=== PATIENT | female | born 1955 | race Caucasian/White ===

== ENCOUNTER → 2016-09-30 | Outpatient (CLI) | payer BC | LOC: BRMIMAGING 07:43 | PROVIDERS: ATTEND Obstetrics & Gynecology Gynecology | DX: Z12.31 Encounter for screening mammogram for malignant neoplasm of breast (principal); R92.8 Other abnormal and inconclusive findings on diagnostic imaging of breast | CPT/HCPCS: G0202 ==

== ENCOUNTER → 2016-10-13 | Outpatient (CLI) | payer BC | LOC: BRMIMAGING 09:48 | PROVIDERS: ATTEND Obstetrics & Gynecology Gynecology | DX: R92.8 Other abnormal and inconclusive findings on diagnostic imaging of breast (principal) | CPT/HCPCS: G0206 ==

== ENCOUNTER → 2016-12-10 | Outpatient (CLI) | payer OTHER, BC | LOC: BMCIMAGING 14:01 | PROVIDERS: ATTEND Family Medicine | DX: S92.352A Displaced fracture of fifth metatarsal bone, left foot, initial encounter for closed fracture (principal) ==

== ENCOUNTER → 2016-12-25 | Outpatient (CLI) | payer OTHER, BC | LOC: BMCIMAGING 10:33 | PROVIDERS: ATTEND Podiatrist Foot & Ankle Surgery | DX: S92.352D Displaced fracture of fifth metatarsal bone, left foot, subsequent encounter for fracture with routine healing (principal) ==

== ENCOUNTER → 2017-01-18 | Outpatient (CLI) | payer OTHER, BC | LOC: BMCIMAGING 14:34 | PROVIDERS: ATTEND Podiatrist Foot & Ankle Surgery | DX: S92.352D Displaced fracture of fifth metatarsal bone, left foot, subsequent encounter for fracture with routine healing (principal) ==

== ENCOUNTER → 2017-02-15 | Outpatient (CLI) | payer OTHER, BC | LOC: BMCIMAGING 15:08 | PROVIDERS: ATTEND Podiatrist Foot & Ankle Surgery | DX: S92.352D Displaced fracture of fifth metatarsal bone, left foot, subsequent encounter for fracture with routine healing (principal) ==

== ENCOUNTER → 2017-10-01 | Outpatient (CLI) | payer BC | LOC: BRMIMAGING 08:12 | PROVIDERS: ATTEND Obstetrics & Gynecology Gynecology | DX: Z12.31 Encounter for screening mammogram for malignant neoplasm of breast (principal) ==